=== PATIENT | female | born 1975 | race Caucasian/White ===

== ENCOUNTER 2021-07-04 17:04 | Emergency (ER) | payer SELFPAY ==
[2021-07-04] MEDS ORDERED: Diazepam 5 MG TAB ONE (18:34)
[2021-07-04] MEDS ORDERED: Acetaminophen 500 MG TAB ONE (18:35)
== END 2021-07-04 18:35 | disposition home or self-care (01) ==
LOC: CSHERS 17:04
DX: M54.6 Pain in thoracic spine (principal); G35 Multiple sclerosis; F17.200 Nicotine dependence, unspecified, uncomplicated; Z79.899 Other long term (current) drug therapy
CPT/HCPCS: 99281

== ENCOUNTER 2021-10-17 22:33 | Emergency (ER) | payer BC ==
[2021-10-17] MEDS ORDERED: Bupivacaine PF 0.5% 30 ML VIAL ONE (23:10)
[2021-10-17] MEDS ORDERED: Boostrix 0.5 ML (Tdap) VIAL ONE (23:18)
== END 2021-10-17 23:32 | disposition home or self-care (01) ==
LOC: CSHERS 22:33
DX: S01.01XA Laceration without foreign body of scalp, initial encounter (principal); F17.210 Nicotine dependence, cigarettes, uncomplicated; Z23 Encounter for immunization; Z79.899 Other long term (current) drug therapy; W01.0XXA Fall on same level from slipping, tripping and stumbling without subsequent striking against object, initial encounter
CPT/HCPCS: 12001; 90471; 90715; S0020

== ENCOUNTER 2022-01-06 05:42 | Emergency (ER) | payer BC ==
[2022-01-06] MEDS ORDERED: ADMIXTURE FEE IVPB SCH (07:00)
[2022-01-06] MEDS ORDERED: [UNRECOGNIZED DRUG - OTHER] IVPB SCH (07:00)
[2022-01-06] MEDS ORDERED: METHYLPREDNISOLONE SOD SUCC IVPB SCH (07:00)
[2022-01-06] MEDS ORDERED: Fioricet 325/50/40 mg Tablet ONE (08:28)
[2022-01-07] MEDS ORDERED: methylPREDNISolone Sod Succ 1 GM, Admixture Fee 1 EACH in Sodium Chloride 0.9% 100 ML IVPB SCH (15:30)
[2022-01-07] MEDS ORDERED: Ondansetron PF 4 MG/2 ML Vial IVP PRN (23:23)
[2022-01-07] MEDS ORDERED: Ondansetron ODT 4 MG TAB PO PRN (23:23)
[2022-01-07] MEDS ORDERED: SUMAtriptan Succinate 50 MG TAB PO PRN (23:29)
[2022-01-07] MEDS ORDERED: Potassium Chloride 20 MEQ TAB PO SCH (23:30)
[2022-01-07] MEDS ORDERED: Ketorolac Tromethamine 30 MG/ML VIAL IVP SCH (23:30)
[2022-01-07] MEDS ORDERED: Pregabalin 75 MG CAP PO SCH (23:30)
[2022-01-07] MEDS ORDERED: 1/2 NS w/KCL 20 mEq 1,000 ML IV SCH (23:30)
[2022-01-07] MEDS ORDERED: Topiramate 100 MG TAB PO SCH (23:45)
[2022-01-07] MEDS ORDERED: Clindamycin 150 MG CAP PO SCH (23:45)
[2022-01-07 23:48] LABS: Magnesium 1.8 mg/dL (1.6-2.6)
[2022-01-08 04:58] LABS: BHCG - Serum Negative (NEGATIVE); Pregs Control Background? CLEAR/WHITE (CLR/WHITE); Pregs Control Bar Appear? YES (CONTROL BAR)
[2022-01-08 05:03] LABS: #Monocytes 0.1 10x3/uL (0.0-1.1); #Neutrophils 4.6 10x3/uL (1.5-8.4); %Basophils 0.5 % (0.0-2.0); %Eosinophils 0.2 % (0.0-6.0); %Lymphocytes 15.1 % (18.0-47.0); %Monocytes 1.8 % (0.0-10.0); Anion Gap 13 mmol/L (10-20); BUN (Urea Nitrogen) 7 mg/dL (7.0-18.7); Calc. Creatinine Clearance 0 mL/min (70-130); Calcium 9.1 mg/dL (7.8-10.44); Carbon Dioxide 20 mmol/L (22-29); Chloride 113 mmol/L (98-107); Glucose 146 mg/dL (70-105); Hemoglobin 12.1 g/dL (12.0-15.5); Mean Corpuscular HGB CONC 33.3 g/dL (32.0-36.0); Mean Corpuscular Volume 93.1 fl (81.6-98.3); Mean Platelet Volume 10.6 fl (7.4-10.4); Platelet Count 182 10x3/uL (150-450); Potassium 3.9 mmol/L (3.5-5.1); RBC Distribution Width 14.5 % (11.5-14.5); Sodium 142 mmol/L (136-145); White Blood Cell (WBC) Count 5.6 10x3/uL (3.5-10.5)
[2022-01-08] MEDS ORDERED: Gabapentin 300 MG CAP PO SCH (09:00)
[2022-01-08] MEDS ORDERED: Bupropion 150 MG XL TAB PO SCH (09:00)
[2022-01-08] MEDS ORDERED: Enoxaparin Sodium 40 MG/0.4 ML SYRINGE SC SCH (09:00)
[2022-01-08] MEDS ORDERED: Aripiprazole 10 MG TAB PO SCH (09:00)
[2022-01-08] MEDS ORDERED: Clindamycin 150 MG CAP PO SCH (09:00)
[2022-01-08] MEDS ORDERED: Nicotine 21 MG PATCH TD SCH (09:00)
[2022-01-08] MEDS ORDERED: Propranolol 40 MG TAB PO SCH (09:00)
[2022-01-08] MEDS ORDERED: Topiramate 100 MG TAB PO SCH (09:00)
[2022-01-08] MEDS ORDERED: methylPREDNISolone Sod Succ 1 GM in Sodium Chloride 0.9% 100 ML IVPB SCH (17:00)
[2022-01-08] MEDS ORDERED: Rosuvastatin 10 MG TAB PO SCH (21:00)
== END 2022-01-06 08:34 | disposition home or self-care (01) ==
LOC: CSHERS 05:42
DX: G35 Multiple sclerosis (principal); Z79.899 Other long term (current) drug therapy; F17.210 Nicotine dependence, cigarettes, uncomplicated
CPT/HCPCS: 70450; 80048; 83735; 84703; 85025; 96374; J2930; J3490

== ENCOUNTER 2022-01-07 20:39 | Observation (INO) | payer BC ==
[2022-01-07] MEDS ORDERED: methylPREDNISolone Sod Succ 1 GM in Sodium Chloride 0.9% 100 ML IVPB SCH (22:00)
[2022-01-07 22:20] LABS: #Basophils 0.1 10x3/uL (0.0-0.2); #Monocytes 0.7 10x3/uL (0.0-1.1); #Neutrophils 4.5 10x3/uL (1.5-8.4); %Basophils 0.8 % (0.0-2.0); %Eosinophils 0.5 % (0.0-6.0); %Lymphocytes 35.7 % (18.0-47.0); %Monocytes 8.1 % (0.0-10.0); %Neutrophils 54.5 % (40.0-75.0); Mean Corpuscular HGB CONC 33.7 g/dL (32.0-36.0); Mean Corpuscular Hemoglobin 30.8 pg (27.0-33.0); Mean Corpuscular Volume 91.5 fl (81.6-98.3); Platelet Count 190 10x3/uL (150-450); RBC Distribution Width 14.3 % (11.5-14.5); Red Blood Cell (RBC) Count 3.89 10x6/uL (3.90-5.03); White Blood Cell (WBC) Count 8.2 10x3/uL (3.5-10.5)
[2022-01-07 22:38] LABS: ALT (SGPT) 20 U/L (8-55); AST (SGOT) 19 U/L (5-34); Alkaline Phosphatase 69 U/L (40-110); BUN (Urea Nitrogen) 8 mg/dL (7.0-18.7); Bilirubin, Total 0.3 mg/dL (0.2-1.2); Calc. Creatinine Clearance 0 mL/min (70-130); Calcium 9.3 mg/dL (7.8-10.44); Carbon Dioxide 18 mmol/L (22-29); Globulin 2.4 g/dL (2.4-3.5); Glucose 84 mg/dL (70-105); Protein, Total 6.4 g/dL (6.0-8.3)
[2022-01-07 22:44] LABS: Chloride 114 mmol/L (98-107); Sodium 141 mmol/L (136-145)
[2022-01-07 22:47] LABS: Anion Gap 12 mmol/L (10-20)
[2022-01-07] MEDS ORDERED: diphenhydrAMINE 50 MG/ML VIAL ONE (23:02)
[2022-01-07] MEDS ORDERED: Fioricet 325/50/40 mg Tablet PO SCH (23:15)
[2022-01-08] MEDS ORDERED: Ondansetron PF 4 MG/2 ML Vial IVP PRN (00:19)
[2022-01-08] MEDS ORDERED: Potassium Chloride 20 MEQ TAB PO SCH (00:30)
[2022-01-08] MEDS ORDERED: Topiramate 25 MG TAB PO SCH ×2 (00:30→09:00)
[2022-01-08] MEDS ORDERED: Ketorolac Tromethamine 30 MG/ML VIAL IVP SCH (00:30)
[2022-01-08] MEDS ORDERED: Clindamycin 150 MG CAP PO SCH (00:30)
[2022-01-08 00:38] VITALS: BMI 18.9
[2022-01-08] MEDS: traMADol HCl 50 MG TAB PO PRN ×2 (01:21→10:23)
[2022-01-08] MEDS: 1/2 NS w/KCL 20 mEq 1,000 ML IV SCH ×2 (01:31→15:53)
[2022-01-08] MEDS ORDERED: Propranolol 40 MG TAB PO SCH ×2 (01:45→09:00)
[2022-01-08] MEDS ORDERED: Gabapentin 300 MG CAP PO SCH (01:45)
[2022-01-08] MEDS ORDERED: tiZANidine HCl 4 MG TAB PO SCH (02:00)
[2022-01-08] MEDS ORDERED: diphenhydrAMINE 50 MG/ML VIAL IVP SCH (02:00)
[2022-01-08] MEDS ORDERED: Rosuvastatin 20 MG TAB PO SCH ×2 (02:00→21:00)
[2022-01-08 04:54] LABS: Magnesium 1.7 mg/dL (1.6-2.6)
[2022-01-08] MEDS: SUMAtriptan Succinate 50 MG TAB PO PRN ×2 (06:58→14:09)
[2022-01-08] MEDS ORDERED: Nicotine 21 MG PATCH TD SCH ×2 (07:00→09:00)
[2022-01-08] MEDS ORDERED: Fioricet 325/50/40 mg Tablet PO PRN (08:55)
[2022-01-08] MEDS ORDERED: Bupropion 150 MG XL TAB PO SCH (09:00)
[2022-01-08] MEDS ORDERED: Aripiprazole 10 MG TAB PO SCH (09:00)
[2022-01-08] MEDS ORDERED: Enoxaparin Sodium 40 MG/0.4 ML SYRINGE SC SCH (09:00)
[2022-01-08] MEDS: Clindamycin 150 MG CAP PO SCH ×2 (10:20→13:43)
[2022-01-08] MEDS: Gabapentin 300 MG CAP PO SCH ×2 (10:22→15:38)
[2022-01-08] MEDS: tiZANidine HCl 4 MG TAB PO SCH ×2 (10:22→15:38)
[2022-01-08 11:32] VITALS: BP 142/81; TEMP 97.3
[2022-01-08] MEDS ORDERED: Magnevist 469MG/ML 20 ML VIAL ONE (14:41)
[2022-01-08 15:30] LABS: SARS-CoV-2 PCR by NAA Not Detected (NotDetected)
[2022-01-08] MEDS ORDERED: methylPREDNISolone Sod Succ 1 GM in Sodium Chloride 0.9% 100 ML IVPB SCH (17:00)
[2022-01-08] MEDS ORDERED: Rosuvastatin 10 MG TAB PO SCH (21:00)
== END 2022-01-08 15:52 | disposition home or self-care (01) ==
LOC: CSHERS 20:39 → CSHTELE 21:55 → UNDOADMOB 01-08 00:19 → CSHTELE 01-08 00:19
PROVIDERS: ADMIT Family Medicine; ATTEND Student in an Organized Health Care Education/Training Program
DX: G35 Multiple sclerosis (principal); G43.109 Migraine with aura, not intractable, without status migrainosus; E87.6 Hypokalemia; F17.210 Nicotine dependence, cigarettes, uncomplicated; E78.5 Hyperlipidemia, unspecified; Z79.899 Other long term (current) drug therapy; Z79.82 Long term (current) use of aspirin; K04.7 Periapical abscess without sinus; Z20.822 Contact with and (suspected) exposure to COVID-19
CPT/HCPCS: 36415; 70553; 80053; 83735; 85025; 96372; 96376; A9579; G0378; J1200; J1650; J2930; J3480; J3490; U0003; U0005

== ENCOUNTER 2022-01-16 19:39 | Emergency (ER) | payer BC ==
[2022-01-16] MEDS ORDERED: methylPREDNISolone Sod Succ 1 GM in Sodium Chloride 0.9% 100 ML IVPB SCH (20:45)
[2022-01-16] MEDS ORDERED: Sodium Chloride 0.9% 1,000 ML IV SCH (20:45)
[2022-01-16 20:48] LABS: #Basophils 0.1 10x3/uL (0.0-0.2); #Eosinphils 0.2 10x3/uL (0.0-0.5); #Monocytes 0.7 10x3/uL (0.0-1.1); #Neutrophils 3.1 10x3/uL (1.5-8.4); %Basophils 1.3 % (0.0-2.0); %Eosinophils 3.2 % (0.0-6.0); %Lymphocytes 34.9 % (18.0-47.0); %Monocytes 11.1 % (0.0-10.0); Hemoglobin 12.6 g/dL (12.0-15.5); Mean Corpuscular HGB CONC 33.2 g/dL (32.0-36.0); Mean Corpuscular Hemoglobin 30.6 pg (27.0-33.0); Mean Corpuscular Volume 92.2 fl (81.6-98.3); Mean Platelet Volume 10.8 fl (7.4-10.4); Platelet Count 157 10x3/uL (150-450); RBC Distribution Width 14.4 % (11.5-14.5); Red Blood Cell (RBC) Count 4.12 10x6/uL (3.90-5.03); White Blood Cell (WBC) Count 6.3 10x3/uL (3.5-10.5)
[2022-01-16 20:55] LABS: BHCG - Serum Negative (NEGATIVE); Pregs Control Background? CLEAR/WHITE (CLR/WHITE); Pregs Control Bar Appear? YES (CONTROL BAR)
[2022-01-16 21:01] LABS: ALT (SGPT) 52 U/L (8-55); AST (SGOT) 42 U/L (5-34); Alkaline Phosphatase 72 U/L (40-110); Anion Gap 12 mmol/L (10-20); BUN (Urea Nitrogen) 4 mg/dL (7.0-18.7); Bilirubin, Total 0.3 mg/dL (0.2-1.2); Calc. Creatinine Clearance 0 mL/min (70-130); Calcium 9.4 mg/dL (7.8-10.44); Carbon Dioxide 21 mmol/L (22-29); Chloride 111 mmol/L (98-107); Globulin 2.3 g/dL (2.4-3.5); Glucose 89 mg/dL (70-105); Potassium 3.1 mmol/L (3.5-5.1); Protein, Total 6.3 g/dL (6.0-8.3); Sodium 141 mmol/L (136-145)
[2022-01-16] MEDS ORDERED: Morphine 4 MG/ML VIAL ONE (21:52)
[2022-01-16] MEDS ORDERED: Ondansetron PF 4 MG/2 ML Vial ONE (21:52)
== END 2022-01-16 22:20 | disposition home or self-care (01) ==
LOC: CSHERS 19:39
DX: G35 Multiple sclerosis (principal); Z79.899 Other long term (current) drug therapy; F17.210 Nicotine dependence, cigarettes, uncomplicated
CPT/HCPCS: 36415; 80053; 84703; 85025; 96361; 96374; 96375; J2270; J2405; J2930; J3490